=== PATIENT | female | born 1990 | race Caucasian/White ===

== ENCOUNTER 2017-03-12 19:55 | Emergency (ER) | payer SELFPAY ==
[~2017-03-12] VITALS: Ht 165.1 cm; Wt 76.8 kg
[~2017-03-12 19:55] MED LIST: AMOXICILLIN500 MG PO; ENDOCET 5-3251 EACH PO; MICRONOR0.35 MG PO; MOTRIN800 MG PO; Motrin PO; PERCOCET 5/31 TABLET PO
[2017-03-12 21:25] LABS: ADD MIUA? YES; BILIRUBIN NEGATIVE; BLOOD NEGATIVE; GLUCOSE (STRIP) NEGATIVE; KETONES 5; LEUKOCYTES LARGE; PROTEIN (STRIP) 30; SPECIFIC GRAVITY 1.016 (1.000-1.030); UROBILINOGEN 0.2 MG/DL (0.2-1.0)
[2017-03-12 21:27] LABS: HEMATOCRIT 42.2 % (36.0-46.0); MCH 29.5 PG (29.0-34.0); MCHC 33.4 G/DL (30.0-36.0); MCV 88.3 FL (83-99); MEAN PLAT.VOLUME 9.7 uM^3 (9.5-12.4); PLATELET COUNT 256 K/uL (156-360); RBC DIS.WIDTH-CV 11.9 % (11.8-14.6); RBC DIS.WIDTH-SD 38.3 % (39-53); RED BLOOD COUNT 4.78 M/uL (3.80-5.20); WHITE BLOOD COUNT 10.2 K/uL (4.1-10.2)
[2017-03-12 21:28] LABS: COLOR DK YELLOW ((YELLOW))
[2017-03-12 21:32] LABS: CHLORIDE 104 mEq/L (99-109); POTASSIUM 3.8 mEq/L (3.7-5.4); SODIUM 138 mEq/L (136-147)
[2017-03-12 21:34] LABS: GLUCOSE 94 mg/dL (70-99)
[2017-03-12 21:35] LABS: ANION GAP 11 MEQ/L (2-14)
[2017-03-12 21:36] LABS: TOTAL BILIRUBIN 0.6 mg/dL (0.0-1.0)
[2017-03-12 21:37] LABS: ALKALINE PHOSPHATASE 88 IU/L (3-129)
[2017-03-12 21:38] LABS: GFR ESTIMATE (CALCULATED) > 59 mL/min/
[2017-03-12 21:39] LABS: UREA NITROGEN (BUN) 10 mg/dL (9-23)
[2017-03-12 21:41] LABS: LIPASE 22 U/L (1.0-51.0)
[2017-03-12 21:47] LABS: QUANTITATIVE HCG < 4.0 MIU/ML
[2017-03-12 22:07] LABS: BACTERIA 4+ /HPF; EPITHELIAL CELLS 4+ /HPF; MUCUS NONE SEEN /LPF; NITRITE POSITIVE; RED BLOOD CELLS 0-5 /HPF (0-5); UCUL ADDED? YES
[2017-03-12] MEDS ORDERED: ZOFRAN ODT4 MG PO (22:20)
[2017-03-12] MEDS ORDERED: MACROBID100 MG PO (22:20)
[2017-03-12 22:37] VITALS: BP 153/97
== END 2017-03-12 22:38 | disposition home or self-care (01) ==
LOC: EME 19:55
PROVIDERS: Physician Assistant
DX: N39.0 Urinary tract infection, site not specified (principal); R11.2 Nausea with vomiting, unspecified; R19.7 Diarrhea, unspecified; F17.200 Nicotine dependence, unspecified, uncomplicated
CPT/HCPCS: 80053; 81003; 83690; 84702; 85027; 87077; 87086; 87186; 99281; 99284; J2405; J7030; S0028